=== PATIENT | female | born 1995 | race American Indian/Alaskan Native ===

== ENCOUNTER 2019-10-12 18:54 | Emergency (ER) | payer SELFPAY ==
[2019-10-12 20:19] VITALS: BP 132/69
--- NOTE | 2019-10-12 20:20 | Emergency Department Report ---
Blank Doc - Documentation Documentation: 24-year-old female that presents with cp, dizziness and left arm pain. This initial assessment/diagnostic orders/clinical plan/treatment(s) is/are subject to change based on patient's health status, clinical progression and re- assessment by fellow clinical providers in the ED. Further treatment and workup at subsequent clinical providers discretion. Patient/guardians urged not to elope from the ED as their condition may be serious if not clinically assessed and managed. Initial orders include: 1- Patient sent to [facility] for further evaluation and treatment 2- labs 3- EKG 4- CXR
[2019-10-12] MEDS ORDERED: CYCLOBENZAPRINE 10 MG TAB PO ONE (21:20)
[2019-10-12] MEDS ORDERED: IBUPROFEN 600 MG TAB PO ONE (21:20)
--- NOTE | 2019-10-12 21:23 | Emergency Department Report ---
ED General Adult HPI - General Chief complaint: Dizziness Stated complaint: CHEST PAIN DIZZY TINGLING LT ARM Time Seen by Provider: 10/12/19 20:19 Source: patient Mode of arrival: Ambulatory Limitations: No Limitations - History of Present Illness Initial comments: Patient is a 24-year-old female presents emergency room with complaints of left- sided chest pain that began today. She states that she feels occasional sharp pains. She states that she has a tingling sensation in the left arm during the pain. She denies any nausea, vomiting, diarrhea, fever, cough, recent illness, leg swelling, shortness of breath, pleuritic chest pain. She denies any recent travel, recent surgery, hormone use. She denies any past medical history or allergies to medications. She endorses that she smoked marijuana yesterday. She states that her only family history is that her grandfather had an RI at 65. She states her last menstrual cycle was September 18, 2019 - Related Data Allergies Allergy/AdvReac Type Severity Reaction Status Date / Time No Known Allergies Allergy Unverified 10/12/19 18:58 ED Review of Systems ROS: Stated complaint: CHEST PAIN DIZZY TINGLING LT ARM Other details as noted in HPI Comment: All other systems reviewed and negative ED Past Medical Hx - Past Medical History Hx Seizures: Yes - Social History Smoking Status: Never Smoker Substance Use Type: Marijuana ED Physical Exam - General Limitations: No Limitations General appearance: alert, in no apparent distress - Head Head exam: Present: atraumatic, normocephalic - Eye Eye exam: Present: normal appearance - ENT ENT exam: Present: mucous membranes moist - Respiratory Respiratory exam: Present: normal lung sounds bilaterally, chest wall tenderness (left sided anterior chest wall ttp). Absent: respiratory distress, wheezes, rales, rhonchi, stridor, accessory muscle use, decreased breath sounds, prolonged expiratory - Cardiovascular Cardiovascular Exam: Present: regular rate, normal rhythm, normal heart sounds. Absent: systolic murmur, diastolic murmur, rubs, gallop - Neurological Exam Neurological exam: Present: alert, oriented X3 - Psychiatric Psychiatric exam: Present: normal affect, normal mood - Skin Skin exam: Present: warm, dry, intact ED Course Vital Signs 10/12/19 19:04 Temperature 98.0 F Pulse Rate 90 Respiratory 18 Rate Blood Pressure 132/69 O2 Sat by Pulse 95 Oximetry ED Medical Decision Making - Lab Data Result diagrams: 10/12/19 20:43 10/12/19 20:43 Lab Results 10/12/19 10/12/19 10/12/19 Range/Units 20:43 20:43 20:43 WBC 6.7 (4.5-11.0) K/mm3 RBC 4.61 (3.65-5.03) M/mm3 Hgb 13.6 (10.1-14.3) gm/dl Hct 40.4 (30.3-42.9) % MCV 88 (79-97) fl MCH 30 (28-32) pg MCHC 34 (30-34) % RDW 14.0 (13.2-15.2) % Plt Count 210 (140-440) K/mm3 Lymph % (Auto) 39.5 H (13.4-35.0) % [place] % (Auto) 8.4 H (0.0-7.3) % Eos % (Auto) 1.1 (0.0-4.3) % Baso % (Auto) 0.6 (0.0-1.8) % Lymph # 2.6 (1.2-5.4) K/mm3 [place] # 0.6 (0.0-0.8) K/mm3 Eos # 0.1 (0.0-0.4) K/mm3 Baso # 0.0 (0.0-0.1) K/mm3 Seg Neutrophils % 50.4 (40.0-70.0) % Seg Neutrophils # 3.4 (1.8-7.7) K/mm3 Sodium 139 (137-145) mmol/L Potassium 4.1 (3.6-5.0) mmol/L Chloride 100.4 (98-107) mmol/L Carbon Dioxide 23 (22-30) mmol/L Anion Gap 20 mmol/L BUN 13 (7-17) mg/dL Creatinine 0.9 (0.7-1.2) mg/dL Estimated GFR > 60 ml/min BUN/Creatinine Ratio 14 % Glucose 101 H (65-100) mg/dL Calcium 9.9 (8.4-10.2) mg/dL Phosphorus (2.5-4.5) mg/dL Magnesium (1.7-2.3) mg/dL Total Bilirubin 0.30 (0.1-1.2) mg/dL AST 27 (5-40) units/L ALT 24 (7-56) units/L Alkaline Phosphatase 80 (35-129) units/L Troponin T < 0.010 (0.00-0.029) ng/mL Total Protein 7.7 (6.3-8.2) g/dL Albumin 4.4 (3.9-5) g/dL Albumin/Globulin Ratio 1.3 % TSH (0.270-4.200) mlU/mL HCG, Qual Negative (Negative) 10/12/19 10/12/19 Range/Units 21:17 21:17 WBC (4.5-11.0) K/mm3 RBC (3.65-5.03) M/mm3 Hgb (10.1-14.3) gm/dl Hct (30.3-42.9) % MCV (79-97) fl MCH (28-32) pg MCHC (30-34) % RDW (13.2-15.2) % Plt Count (140-440) K/mm3 Lymph % (Auto) (13.4-35.0) % [place] % (Auto) (0.0-7.3) % Eos % (Auto) (0.0-4.3) % Baso % (Auto) (0.0-1.8) % Lymph # (1.2-5.4) K/mm3 [place] # (0.0-0.8) K/mm3 Eos # (0.0-0.4) K/mm3 Baso # (0.0-0.1) K/mm3 Seg Neutrophils % (40.0-70.0) % Seg Neutrophils # (1.8-7.7) K/mm3 Sodium (137-145) mmol/L Potassium (3.6-5.0) mmol/L Chloride (98-107) mmol/L Carbon Dioxide (22-30) mmol/L Anion Gap mmol/L BUN (7-17) mg/dL Creatinine (0.7-1.2) mg/dL Estimated GFR ml/min BUN/Creatinine Ratio % Glucose (65-100) mg/dL Calcium (8.4-10.2) mg/dL Phosphorus 3.50 (2.5-4.5) mg/dL Magnesium 1.80 (1.7-2.3) mg/dL Total Bilirubin (0.1-1.2) mg/dL AST (5-40) units/L ALT (7-56) units/L Alkaline Phosphatase (35-129) units/L Troponin T (0.00-0.029) ng/mL Total Protein (6.3-8.2) g/dL Albumin (3.9-5) g/dL Albumin/Globulin Ratio % TSH 3.840 (0.270-4.200) mlU/mL HCG, Qual (Negative) - EKG Data EKG shows normal: sinus rhythm, axis, intervals, QRS complexes, ST-T waves Rate: normal - Radiology Data Radiology results: report reviewed CHEST 2 VIEWS INDICATION: cp. COMPARISON: None FINDINGS: Support devices: None. Heart: Within normal limits. Lungs/pleura: No acute air space or interstitial disease. No pneumothorax. Additional findings: None. IMPRESSION: 1. No acute findings. Signer Name: Mina Blackwell MD Signed: 10/12/2019 10:15 PM Workstation Name: [id number] Transcribed By: BENIGNO Dictated By: Mina Blackwell MD Electronically Authenticated By: Mina Blackwell MD Signed Date/Time: 10/12/192214 DD/ 14 TD/TT: - Medical Decision Making Patient is a 24-year-old female presents emergency room with complaints of left- sided chest pain that began today. She states that she feels occasional sharp pains. She states that she has a tingling sensation in the left arm during the pain. She denies any nausea, vomiting, diarrhea, fever, cough, recent illness, leg swelling, shortness of breath, pleuritic chest pain. She denies any recent travel, recent surgery, hormone use. She denies any past medical history or allergies to medications. She endorses that she smoked marijuana yesterday. She states that her only family history is that her grandfather had an RI at 65. She states her last menstrual cycle was September 18, 2019. On exam left anterior chest wall tenderness to palpation. Vitals are normal. Labs are normal. Troponin is negative. EKG within normal limits. Chest x-ray with no acute process. Heart score is 0, PENG score is 0, low risk for cardiac event. PERC criteria negative for PE. Could be related to costochondritis versus anxiety/marijuana use. Will refer patient to outpatient cardiology. Patient's discomfort treated in the emergency department with ibuprofen and Flexeril as she did not drive and improved. advised pt May take Tylenol or ibuprofen as nee ded for pain. May use ice pack, heating pad, rest, Epsom salt bath. Avoid caffeine use. Avoid marijuana use. Follow-up with your primary care doctor. Follow-up with a mechanical spreader operator. Return to the emergency room for any new or worsening symptoms. - Differential Diagnosis Anxiety, anemia, costochondritis, PTX, ACS, PE, GERD, PUD, CM Critical care attestation.: If time is entered above; I have spent that time in minutes in the direct care of this critically ill patient, excluding procedure time. ED Disposition Clinical Impression: Atypical chest pain, Tingling of left upper extremity Disposition: DC- TO HOME OR SELFCARE Is pt being admited?: No Does the pt Need Aspirin: No Condition: Stable Instructions: Chest Pain (ED), Costochondritis (ED) Additional Instructions: May take Tylenol or ibuprofen as needed for pain. May use ice pack, heating pad, rest, Epsom salt bath. Avoid caffeine use. Avoid marijuana use. Follow- up with your primary care doctor. Follow-up with a mechanical spreader operator. Return to the emergency room for any new or worsening symptoms. Referrals: MARAH MEDEIROS MD [Staff Physician] - 2-3 Days [facility] [Outside] - 2-3 Days [facility] [Outside] - 2-3 Days Time of Disposition: 22:29 Print Language: THAI
[2019-10-12 21:44] LABS: Basophils % (Auto) 0.6 % (0.0-1.8); Eosinophils # (Auto) 0.1 K/mm3 (0.0-0.4); Eosinophils % (Auto) 1.1 % (0.0-4.3); Hematocrit 40.4 % (30.3-42.9); Hemoglobin 13.6 gm/dl (10.1-14.3); Lymphocytes # (Auto) 2.6 K/mm3 (1.2-5.4); Lymphocytes % (Auto) 39.5 % (13.4-35.0); Mean Corpuscular HGB Conc 34 % (30-34); Mean Corpuscular Volume 88 fl (79-97); Monocytes # (Auto) 0.6 K/mm3 (0.0-0.8); Monocytes % (Auto) 8.4 % (0.0-7.3); Platelet Count 210 K/mm3 (140-440); Red Blood Count 4.61 M/mm3 (3.65-5.03)
[2019-10-12 21:54] LABS: Alanine Aminotransferase 24 units/L (7-56); Albumin 4.4 g/dL (3.9-5); BUN/Creatinine Ratio 14; Blood Urea Nitrogen 13 mg/dL (7-17); Calcium 9.9 mg/dL (8.4-10.2); Hemolysis Index 34
--- NOTE | 2019-10-12 22:19 | XRay Report ---
CHEST 2 VIEWS INDICATION: cp. COMPARISON: None FINDINGS: Support devices: None. Heart: Within normal limits. Lungs/pleura: No acute air space or interstitial disease. No pneumothorax. Additional findings: None. IMPRESSION: 1. No acute findings. Signer Name: Mina Blackwell MD Signed: 10/12/2019 10:15 PM Workstation Name: [id number]
== END 2019-10-12 22:40 | disposition home or self-care (01) ==
LOC: ED 18:54 → EDBD 18:54 → ED 22:40
DX: R07.89 Other chest pain (principal); R20.2 Paresthesia of skin; F12.10 Cannabis abuse, uncomplicated
CPT/HCPCS: 36415; 71046; 80053; 83735; 84100; 84443; 84484; 84703; 85025; 93005; 93010; 99284